=== PATIENT | male | born 1985 | race Caucasian/White ===

== ENCOUNTER 2018-04-06 16:48 | Emergency (ER) | payer SELFPAY ==
[~2018-04-06] VITALS: Wt 59.0 kg
[~2018-04-06 16:48] MED LIST: CATAFLAM50 MG PO; CLARITIN10 MG PO; CLEOCIN150 MG PO; DAYPRO600 M1 PO; HYDROCODONE BIT1 T11 PO; MOTRIN800 MG PO; Motrin,Rufen800 MG PO; PEN-VEE K500 MG PO; PENICILLIN VK500 MG PO; TRAMADOL HCL50 MG PO; TRIMOX500 MG PO
[2018-04-06] MEDS ORDERED: DOXYCYCLINE100 M3 PO (17:33)
== END 2018-04-06 17:45 | disposition home or self-care (01) ==
LOC: ED 16:48
DX: L03.211 Cellulitis of face (principal); L02.01 Cutaneous abscess of face

== ENCOUNTER 2019-03-01 12:00 | Emergency (ER) | payer MEDICAID ==
[~2019-03-01] VITALS: Ht 172.7 cm; Wt 56.7 kg
[~2019-03-01 12:00] MED LIST changes: +DOXYCYCLINE100 M3 PO
[2019-03-01 12:32] LABS: BASO % 0.3 % (0.0-1.0); EOS # 0.4 10*3/uL (0.0-0.4); EOS % 5.7 % (1.0-4.0); HEMATOCRIT 46.5 % (42.0-52.0); HEMOGLOBIN 15.6 g/dl (14.0-18.0); LYMPH # 1.2 10*3/uL (1.3-4.4); LYMPH % 18.8 % (27.0-41.0); MEAN CELL VOLUME 89.3 fl (80.0-94.0); MEAN CORPUSCULAR HGB 29.9 pg (27.0-31.0); MEAN CORPUSCULAR HGB CONC 33.5 g/dl (33.0-37.0); MONO # 0.5 10*3/uL (0.1-1.0); MONO % 7.6 % (3.0-9.0); NEUT # 4.2 10*3/uL (2.3-7.9); NEUT % 67.4 % (47.0-73.0); PLATELET COUNT AUTOMATED 201 10*3/uL (130-400); RED BLOOD COUNT 5.21 10*6/uL (4.50-5.90); RED CELL DISTRI WIDTH 12.9 % (0-14.5); WHITE BLOOD COUNT 6.2 10*3/uL (4.8-10.8)
[2019-03-01 12:46] LABS: ALBUMIN 4.2 gm/dl (3.1-4.5); ALKALINE PHOSPHATASE 82 U/L (45-117); BUN 7 mg/dl (7-24); CHLORIDE 103 mmol/L (98-107); POTASSIUM 3.9 mmol/L (3.5-5.1); SGOT/AST 14 IU/L (3-35); SGPT/ALT 18 U/L (12-78); SODIUM 138 mmol/L (136-145); TOTAL PROTEIN 7.8 gm/dL (6.4-8.2)
[2019-03-01] MEDS ORDERED: CEPHALEXIN500 M1 PO (14:38)
== END 2019-03-01 14:52 | disposition home or self-care (01) ==
LOC: ED 12:00
PROVIDERS: Physician Assistant
DX: L03.211 Cellulitis of face (principal)

== ENCOUNTER → 2019-05-03 | Outpatient (CLI) | payer MEDICAID ==
[~2019-05-03] MED LIST changes: +CEPHALEXIN500 M1 PO
[2019-05-03 14:31] LABS: BASO % 0.6 % (0.0-1.0); EOS # 0.3 10*3/uL (0.0-0.4); EOS % 5.6 % (1.0-4.0); HEMATOCRIT 44.6 % (42.0-52.0); HEMOGLOBIN 14.7 g/dl (14.0-18.0); LYMPH # 1.6 10*3/uL (1.3-4.4); LYMPH % 30.5 % (27.0-41.0); MEAN CORPUSCULAR HGB 30.3 pg (27.0-31.0); MEAN PLATELET VOLUME 10.4 fl (9.6-12.3); MONO # 0.5 10*3/uL (0.1-1.0); MONO % 10.1 % (3.0-9.0); NEUT # 2.8 10*3/uL (2.3-7.9); PLATELET COUNT AUTOMATED 186 10*3/uL (130-400); RED BLOOD COUNT 4.85 10*6/uL (4.50-5.90); RED CELL DISTRI WIDTH 12.9 % (0-14.5); WHITE BLOOD COUNT 5.3 10*3/uL (4.8-10.8)
[2019-05-03 14:48] LABS: ALKALINE PHOSPHATASE 61 U/L (45-117); BUN 6 mg/dl (7-24); CHLORIDE 103 mmol/L (98-107); SGOT/AST 13 IU/L (3-35); SODIUM 138 mmol/L (136-145)
[2019-05-03 14:52] LABS: SGPT/ALT 18 U/L (12-78)
== END | disposition home or self-care (01) ==
LOC: RESCLI 13:15
PROVIDERS: Internal Medicine
DX: Z23 Encounter for immunization (principal); J34.1 Cyst and mucocele of nose and nasal sinus; L03.211 Cellulitis of face; F17.220 Nicotine dependence, chewing tobacco, uncomplicated; Z71.6 Tobacco abuse counseling

== ENCOUNTER → 2019-06-07 | Outpatient (CLI) | payer MEDICAID | END | disposition home or self-care (01) | LOC: RESCLI 14:32 | DX: B96.89 Other specified bacterial agents as the cause of diseases classified elsewhere (principal); J01.90 Acute sinusitis, unspecified; Z71.6 Tobacco abuse counseling; Z72.0 Tobacco use ==

== ENCOUNTER → 2020-01-02 | Outpatient (CLI) | payer OTHER | END | disposition home or self-care (01) | LOC: RESCLI 00:43 | DX: R42 Dizziness and giddiness (principal); G25.81 Restless legs syndrome; F12.10 Cannabis abuse, uncomplicated; Z79.899 Other long term (current) drug therapy; Z72.0 Tobacco use; Z98.890 Other specified postprocedural states ==

== ENCOUNTER → 2020-02-07 | Outpatient (CLI) | payer OTHER ==
[2020-02-07 11:11] LABS: ALKALINE PHOSPHATASE 52 U/L (45-117); BUN 7 mg/dl (7-24); CHLORIDE 106 mmol/L (98-107); CREATININE 0.96 mg/dL (0.70-1.30); IRON 53 ug/dL (65-175); POTASSIUM 4.1 mmol/L (3.5-5.1); SGOT/AST 17 IU/L (3-35); SGPT/ALT 17 U/L (12-78); SODIUM 139 mmol/L (136-145)
[2020-02-07 11:39] LABS: FERRITIN 80.6 ng/mL (22.0-322.0); VITAMIN D, 25-HYDROXY 41.5 ng/mL (30-100)
== END | disposition home or self-care (01) ==
LOC: RESCLI 00:41
PROVIDERS: ATTEND Student in an Organized Health Care Education/Training Program
DX: G25.81 Restless legs syndrome (principal); R42 Dizziness and giddiness; Z72.0 Tobacco use; Z79.899 Other long term (current) drug therapy; Z98.890 Other specified postprocedural states

== ENCOUNTER 2020-03-24 07:49 | Emergency (ER) | payer OTHER ==
[2020-03-24] MEDS ORDERED: Motrin,Rufen800 MG PO (11:49)
== END 2020-03-24 12:00 | disposition home or self-care (01) ==
LOC: ED 07:49
DX: S06.0X9A Concussion with loss of consciousness of unspecified duration, initial encounter (principal); S16.1XXA Strain of muscle, fascia and tendon at neck level, initial encounter; S40.021A Contusion of right upper arm, initial encounter; Z79.899 Other long term (current) drug therapy; W19.XXXA Unspecified fall, initial encounter; Y93.89 Activity, other specified; Y92.89 Other specified places as the place of occurrence of the external cause; Y99.8 Other external cause status

== ENCOUNTER → 2020-07-05 | Outpatient (CLI) | payer OTHER | END | disposition home or self-care (01) | LOC: RESCLI 00:01 | PROVIDERS: ATTEND Internal Medicine Nephrology | DX: R11.2 Nausea with vomiting, unspecified (principal); E61.1 Iron deficiency; R42 Dizziness and giddiness; G25.81 Restless legs syndrome; K21.9 Gastro-esophageal reflux disease without esophagitis; Z79.899 Other long term (current) drug therapy; Z87.891 Personal history of nicotine dependence ==

== ENCOUNTER → 2020-08-10 | Outpatient (CLI) | payer OTHER ==
[2020-08-10 16:50] LABS: BASO % 0.6 % (0.0-1.0); EOS # 0.3 10*3/uL (0.0-0.4); EOS % 4.4 % (1.0-4.0); HEMATOCRIT 43.9 % (42.0-52.0); LYMPH # 2.7 10*3/uL (1.3-4.4); LYMPH % 40.8 % (27.0-41.0); MEAN CORPUSCULAR HGB 29.9 pg (27.0-31.0); MEAN CORPUSCULAR HGB CONC 33.3 g/dl (33.0-37.0); MEAN PLATELET VOLUME 9.2 fl (9.6-12.3); MONO # 0.7 10*3/uL (0.1-1.0); MONO % 10.6 % (3.0-9.0); NEUT # 2.9 10*3/uL (2.3-7.9); NEUT % 43.4 % (47.0-73.0); PLATELET COUNT AUTOMATED 196 10*3/uL (130-400); RED BLOOD COUNT 4.88 10*6/uL (4.50-5.90); RED CELL DISTRI WIDTH 12.5 % (0-14.5); WHITE BLOOD COUNT 6.6 10*3/uL (4.8-10.8)
[2020-08-10 17:10] LABS: ALBUMIN 4.4 gm/dl (3.1-4.5); BUN 12 mg/dl (7-24); CHLORIDE 104 mmol/L (98-107); CREATININE 1.01 mg/dL (0.70-1.30); IRON 96 ug/dL (65-175); POTASSIUM 3.3 mmol/L (3.5-5.1); SGOT/AST 10 IU/L (3-35); SGPT/ALT 16 U/L (12-78); SODIUM 140 mmol/L (136-145)
[2020-08-10 17:15] LABS: ALKALINE PHOSPHATASE 61 U/L (45-117); TOTAL IRON BINDING CAPACITY 338 ug/dl (250-450); TOTAL PROTEIN 7.4 gm/dL (6.4-8.2)
== END | disposition home or self-care (01) ==
LOC: RESCLI 00:49
PROVIDERS: Internal Medicine; ATTEND Internal Medicine
DX: F41.9 Anxiety disorder, unspecified (principal); R45.1 Restlessness and agitation; E61.1 Iron deficiency; R07.89 Other chest pain; F12.10 Cannabis abuse, uncomplicated; Z79.899 Other long term (current) drug therapy; Z72.0 Tobacco use

== ENCOUNTER → 2020-09-05 | Outpatient (CLI) | payer OTHER | END | disposition home or self-care (01) | LOC: RESCLI 01:33 | PROVIDERS: ATTEND Internal Medicine Nephrology | DX: R42 Dizziness and giddiness (principal); K21.9 Gastro-esophageal reflux disease without esophagitis; E87.6 Hypokalemia; Z79.899 Other long term (current) drug therapy; Z72.0 Tobacco use; Z98.890 Other specified postprocedural states ==

== ENCOUNTER → 2021-03-08 | Outpatient (CLI) | payer OTHER | END | disposition home or self-care (01) | LOC: COVID19 16:20 | PROVIDERS: ATTEND Internal Medicine | DX: U07.1 COVID-19 (principal) ==

== ENCOUNTER 2021-09-21 00:47 | Emergency (ER) | payer OTHER ==
[2021-09-21] MEDS ORDERED: PENICILLIN VK500 MG PO (01:15)
== END 2021-09-21 01:17 | disposition home or self-care (01) ==
LOC: ED 00:47
DX: K02.9 Dental caries, unspecified (principal)

== ENCOUNTER 2021-10-22 20:02 | Emergency (ER) | payer OTHER ==
[~2021-10-22] VITALS: Ht 172.7 cm; Wt 56.7 kg
[2021-10-22] MEDS ORDERED: CLINDAMYCIN HC300 MG PO (20:31)
== END 2021-10-22 20:32 | disposition home or self-care (01) ==
LOC: ED 20:02
DX: K08.89 Other specified disorders of teeth and supporting structures (principal)

== ENCOUNTER 2021-11-02 21:46 | Emergency (ER) | payer OTHER ==
[~2021-11-02 21:46] MED LIST changes: +CLINDAMYCIN HC300 MG PO
[2021-11-02] MEDS ORDERED: AUGMENTIN 875-875 MG PO (23:38)
[2021-11-02] MEDS ORDERED: NAPROSYN500 MG PO (23:38)
== END 2021-11-02 23:51 | disposition home or self-care (01) ==
LOC: ED 21:46
DX: K08.89 Other specified disorders of teeth and supporting structures (principal)

== ENCOUNTER 2021-11-15 11:40 | Emergency (ER) | payer OTHER ==
[~2021-11-15] VITALS: Ht 172.7 cm; Wt 56.7 kg
[~2021-11-15 11:40] MED LIST changes: +AUGMENTIN 875-875 MG PO; +NAPROSYN500 MG PO
== END 2021-11-15 15:24 | disposition home or self-care (01) ==
LOC: ED 11:40
DX: S20.02XA Contusion of left breast, initial encounter (principal); W18.39XA Other fall on same level, initial encounter; Y93.89 Activity, other specified; Y92.89 Other specified places as the place of occurrence of the external cause; Y99.8 Other external cause status

== ENCOUNTER 2022-01-22 09:44 | Emergency (ER) | payer OTHER ==
[~2022-01-22] VITALS: Wt 59.0 kg
[2022-01-22] MEDS ORDERED: NYSTATIN CREAM15 GM T (11:12)
== END 2022-01-22 11:29 | disposition home or self-care (01) ==
LOC: ED 09:44
DX: L30.4 Erythema intertrigo (principal)

== ENCOUNTER 2022-03-18 08:08 | Emergency (ER) | payer OTHER ==
[~2022-03-18] VITALS: Ht 172.7 cm; Wt 59.0 kg
[~2022-03-18 08:08] MED LIST changes: +NYSTATIN CREAM15 GM T
== END 2022-03-18 10:10 | disposition home or self-care (01) ==
LOC: ED 08:08
DX: B34.9 Viral infection, unspecified (principal); Z20.822 Contact with and (suspected) exposure to COVID-19

== ENCOUNTER → 2022-04-02 | Outpatient (CLI) | payer SELFPAY | END | disposition home or self-care (01) | LOC: RESCLI 16:51 | PROVIDERS: ATTEND Internal Medicine | DX: T14.8XXA Other injury of unspecified body region, initial encounter (principal); F41.9 Anxiety disorder, unspecified; F32.A Depression, unspecified; Z82.49 Family history of ischemic heart disease and other diseases of the circulatory system; Z79.899 Other long term (current) drug therapy; Z98.890 Other specified postprocedural states; W57.XXXA Bitten or stung by nonvenomous insect and other nonvenomous arthropods, initial encounter; Y93.89 Activity, other specified; Y92.89 Other specified places as the place of occurrence of the external cause; Y99.8 Other external cause status ==

== ENCOUNTER 2022-08-02 19:01 | Emergency (ER) | payer OTHER ==
[~2022-08-02] VITALS: Ht 172.7 cm; Wt 59.9 kg
[2022-08-02 19:43] LABS: BASO % 0.3 % (0.0-1.0); EOS # 0.2 10*3/uL (0.0-0.4); EOS % 1.8 % (1.0-4.0); HEMATOCRIT 47.4 % (42.0-52.0); LYMPH # 1.1 10*3/uL (1.3-4.4); MEAN CELL VOLUME 88.8 fl (80.0-94.0); MEAN CORPUSCULAR HGB 30.1 pg (27.0-31.0); MEAN PLATELET VOLUME 9.6 fl (9.6-12.3); MONO # 0.9 10*3/uL (0.1-1.0); MONO % 8.3 % (3.0-9.0); NEUT # 8.9 10*3/uL (2.3-7.9); NEUT % 79.3 % (47.0-73.0); PLATELET COUNT AUTOMATED 173 10*3/uL (130-400); RED BLOOD COUNT 5.34 10*6/uL (4.50-5.90); RED CELL DISTRI WIDTH 12.8 % (0-14.5); WHITE BLOOD COUNT 11.1 10*3/uL (4.8-10.8)
[2022-08-02 20:01] LABS: ALKALINE PHOSPHATASE 56 U/L (46-116); BUN 8 mg/dl (9-23); CHLORIDE 99 mmol/L (98-107); POTASSIUM 3.6 mmol/L (3.4-5.1); SGPT/ALT 8 U/L (10-49)
== END 2022-08-02 20:55 | disposition home or self-care (01) ==
LOC: ED 19:01
PROVIDERS: Nurse Practitioner Family
DX: B34.9 Viral infection, unspecified (principal); Z20.822 Contact with and (suspected) exposure to COVID-19

== ENCOUNTER 2023-09-18 08:37 | Emergency (ER) | payer OTHER ==
[~2023-09-18] VITALS: Ht 172.7 cm; Wt 52.2 kg
[2023-09-18] MEDS ORDERED: LORazepam 1 MG TAB PO ONE (09:00)
[2023-09-18] MEDS ORDERED: SODIUM CHLORIDE 0.9% 1,000 ML IV ONE (09:00)
[2023-09-18 09:12] LABS: EOS # 0.1 10*3/uL (0.0-0.4); EOS % 2.7 % (1.0-4.0); HEMATOCRIT 50.2 % (42.0-52.0); LYMPH # 1.1 10*3/uL (1.3-4.4); LYMPH % 26.5 % (27.0-41.0); MEAN CELL VOLUME 87.8 fl (80.0-94.0); MEAN CORPUSCULAR HGB 29.7 pg (27.0-31.0); MEAN CORPUSCULAR HGB CONC 33.9 g/dl (33.0-37.0); MEAN PLATELET VOLUME 9.5 fl (9.6-12.3); MONO # 0.4 10*3/uL (0.1-1.0); MONO % 10.3 % (3.0-9.0); NEUT # 2.4 10*3/uL (2.3-7.9); NEUT % 59.5 % (47.0-73.0); PLATELET COUNT AUTOMATED 174 10*3/uL (130-400); RED BLOOD COUNT 5.72 10*6/uL (4.50-5.90); RED CELL DISTRI WIDTH 12.3 % (0-14.5); WHITE BLOOD COUNT 4.1 10*3/uL (4.8-10.8)
[2023-09-18 09:34] LABS: ALKALINE PHOSPHATASE 50 U/L (46-116); BUN 8 mg/dl (9-23); CHLORIDE 104 mmol/L (98-107); POTASSIUM 3.3 mmol/L (3.4-5.1); SGPT/ALT 8 U/L (5-49); TOTAL PROTEIN 7.3 gm/dL (6.0-8.0)
[2023-09-18] MEDS ORDERED: VISTARIL25 MG PO (09:48)
[2023-09-18] MEDS ORDERED: POTASSIUM CHLORIDE 20 MEQ TAB PO ONE (10:10)
== END 2023-09-18 10:38 | disposition home or self-care (01) ==
LOC: ED 08:37
PROVIDERS: Emergency Medicine
DX: F41.9 Anxiety disorder, unspecified (principal); G56.22 Lesion of ulnar nerve, left upper limb

== ENCOUNTER 2023-12-30 08:32 | Emergency (ER) | payer SELFPAY ==
[~2023-12-30] VITALS: Ht 172.7 cm; Wt 59.0 kg
[~2023-12-30 08:32] MED LIST changes: +VISTARIL25 MG PO
[2023-12-30] MEDS ORDERED: Amoxicillin/Clavulanate Pota 875 MG TAB PO ONE (08:50)
[2023-12-30] MEDS ORDERED: BUPIVACAINE 0.5% 10 ML VIAL IJ ONE (08:50)
[2023-12-30] MEDS ORDERED: AMOX-CLAV 875-1 EACH PO (08:54)
== END 2023-12-30 09:13 | disposition home or self-care (01) ==
LOC: ED 08:32
DX: K04.7 Periapical abscess without sinus (principal); F17.200 Nicotine dependence, unspecified, uncomplicated; Z79.899 Other long term (current) drug therapy

== ENCOUNTER 2024-07-24 12:10 | Emergency (ER) | payer SELFPAY ==
[~2024-07-24] VITALS: Ht 172.7 cm; Wt 56.7 kg
[~2024-07-24 12:10] MED LIST changes: +AMOX-CLAV 875-1 EACH PO
[2024-07-24] MEDS ORDERED: Amoxicillin/Clavulanate Pota 875 MG TAB PO ONE (14:50)
[2024-07-24] MEDS ORDERED: AMOX-CLAV 875-1 EACH PO (14:52)
== END 2024-07-24 15:00 | disposition home or self-care (01) ==
LOC: ED 12:10
DX: H66.91 Otitis media, unspecified, right ear (principal); Z20.822 Contact with and (suspected) exposure to COVID-19; Z79.899 Other long term (current) drug therapy